=== PATIENT | male | born 1960 | race Caucasian/White ===

== ENCOUNTER → 2018-03-07 | Outpatient (CLI) | payer OTHER ==
--- NOTE | 2018-03-08 08:25 | MRI ---
HISTORY: Right groin pain and pelvic pain Study: MRI pelvis without contrast Comparison: None Technique: Multiplanar multisequence MRI of the pelvis was obtained utilizing standard departmental protocol without contrast. Findings: There is moderate joint space narrowing symmetrically in both hips. No fracture or dislocat ion is seen. The pelvis is intact and normal signal intensity. The bone marrow signal is normal throu ghout. The bladder is unremarkable. The prostate gland is mildly enlarged and heterogeneous throughou t. There is some mild, irregular , linear soft tissue signal along the right inguinal region extendin g inferiorly along the musculature and inferiorly into the right inguinal canal. There is some mild l inear signal extending to the skin surface anteriorly. The signal appears low signal on T1 and T2 sug gestive of fibrosis and scarring and may represent postop changes. There is no focal fluid collection or obvious mass lesion in the area. There is some mild asymmetric fat density along the left inguina l region extending inferiorly with no bowel loops in the area. The inguinal vessels are patent normal caliber throughout. No pelvic mass or adenopathy is seen. IMPRESSION: Ill-defined asymmetric soft tissue fullness along the right inguinal region extending to the skin gerard face and inferiorly into the inguinal canal. No obvious hernia or fluid collection can be seen in the area. This may represent fibrotic scarring in the area from prior surgery or possible postinflammato ry scarring or less likely other etiology . Recommend correlating with prior surgical history and cli nical follow-up of the area. Prominent fat density along the left inguinal region which probably represents an inguinal hernia wit h no bowel loops in the area. Recommend clinical follow-up. Mild prostatic enlargement with no pelvic mass or adenopathy. 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 Reported By:
== END ==
LOC: RAD 15:39
DX: R10.31 Right lower quadrant pain (principal); R10.2 Pelvic and perineal pain
CPT/HCPCS: 72195